=== PATIENT | female | born 1985 | race Caucasian/White ===

== ENCOUNTER 2017-05-28 17:04 | Emergency (ER) | payer OTHER ==
[2017-05-28 17:09] VITALS: BP 108/70; PULSE 87; TEMP 98.4; BMI 32.4
--- NOTE | 2017-05-28 17:10 | PDOC ---
Rapid Medical Evaluation Chief Complaint: Palpitations Time Seen by Provider: 05/28/17 17:09 Medical Evaluation: Allergies Allergy/AdvReac Type Severity Reaction Status Date / Time No Known Allergies Allergy Verified 05/28/17 17:06 05/28/17 17:09 I have performed a brief in-person evaluation of this patient. The Patient presents with a chief complaint of palpitations Patient states sent from [facility] for irregular heart beat Pertinent physical exam findings are: NAD unlabored breathing heart rate regular,S1S2 non tender chest I have ordered the following: ekg ordered The patient will proceed to the ED for further evaluation. 05/28/17 17:11 05/28/17 21:12 Discharge Disposition - Diagnosis Palpitations - Discharge Dispostion Disposition: HOME Condition at time of disposition: Stable - Referrals Referrals: Jay Caldera MD [Staff Physician] - J Luis Harris MD [Primary Care Provider] - - Patient Instructions Printed Discharge Instructions: DI for Palpitations Additional Instructions: Please follow up with a supervisor sample. You have been given a referral. Call to schedule an appointment. If you feel persistent palpitations, please return to the ER for further evaluations. - Post Discharge Activity
--- NOTE | 2017-05-28 18:51 | PDOC ---
History of Present Illness - General History Source: Patient, Family Exam Limitations: No Limitations - History of Present Illness Initial Comments: 05/28/17 18:56 The patient is a 31 year old female with no significant PMH who presents to the emergency department with palpitations beginning approximately yesterday. The patient reports going to an Urgent Care and being referred to the ED for evaluation. The patient reports that her neck sometimes throbs with the onset of the palpitations. The patient reports currently not experiencing any palpitations. The patient denies any cardiac history. The patient denies any medications. The patient denies chest pain, headache and dizziness. Denies fever, chills, nausea, vomit, diarrhea and constipation. Denies dysuria, frequency, urgency and hematuria. Allergies: NKA Past surgical history: None reported. Social history: No reported toxic habits. PCP: Dr. Harris <Damir Holliday - Last Filed: 05/28/17 18:55> - General History Source: Patient, Family Exam Limitations: No Limitations <Damir Limon - Last Filed: 05/28/17 20:33> - General Chief Complaint: Palpitations Stated Complaint: PALPITATIONS Time Seen by Provider: 05/28/17 17:09 Past History <Damir Holliday - Last Filed: 05/28/17 18:55> - Past Medical History COPD: No Psychiatric Problems: Yes (anxeity) - Reproductive History Cervical CA: No Dysfunctional Uterine Bleeding: No Ectopic : No Endometrial CA: No Polycystic Ovaries: No Therapeutic (s) & number: Yes (3) Tubal Ligation: No - Immunization History Td Vaccination: Yes Immunization Up to Date: Yes - Suicide/Smoking/Psychosocial Hx Smoking Status: No Smoking History: Never smoked Years of Tobacco Use: 0 Have you smoked in the past 12 months: No Number of Cigarettes Smoked Daily: 0 Cigars Per Day: 0 Information on smoking cessation initiated: No Hx Alcohol Use: No Drug/Substance Use Hx: No Substance Use Type: None <Damir Limon - Last Filed: 05/28/17 20:33> - Past Medical History Allergies/Adverse Reactions: Allergies Allergy/AdvReac Type Severity Reaction Status Date / Time No Known Allergies Allergy Verified 05/28/17 17:06 Home Medications: Ambulatory Orders NK [No Known Home Medication] 05/28/17 Review of Systems - Review of Systems Able to Perform ROS?: Yes Comments:: 05/28/17 18:56 GENERAL/CONSTITUTIONAL: No fever or chills. No weakness. HEAD, EYES, EARS, NOSE AND THROAT: (+) Neck throb sensation. No change in vision. No ear pain or discharge. No sore throat. CARDIOVASCULAR: (+) Palpitations. No chest pain. RESPIRATORY: No cough, wheezing, or hemoptysis. GASTROINTESTINAL: No nausea, vomiting, diarrhea or constipation. GENITOURINARY: No dysuria, frequency, or change in urination. MUSCULOSKELETAL: No joint or muscle swelling or pain. No neck or back pain. SKIN: No rash NEUROLOGIC: No headache, vertigo, loss of consciousness, or change in strength/ sensation. ENDOCRINE: No increased thirst. No abnormal weight change. HEMATOLOGIC/LYMPHATIC: No anemia, easy bleeding, or history of blood clots. ALLERGIC/IMMUNOLOGIC: No hives or skin allergy. <Damir Holliday - Last Filed: 05/28/17 18:55> *Physical Exam - Vital Signs Last Vital Signs Temp Pulse Resp BP Pulse Ox 98.4 F 87 18 108/70 100 05/28/17 17:07 05/28/17 17:07 05/28/17 17:07 05/28/17 17:07 05/28/17 17:07 - Physical Exam Comments: 05/28/17 18:56 GENERAL: Awake, alert, and fully oriented, in no acute distress HEAD: No signs of trauma EYES: PERRLA, EOMI, sclera anicteric, conjunctiva clear ENT: Auricles normal inspection, hearing grossly normal, nares patent, oropharynx clear without exudates. Moist mucosa NECK: Normal ROM, supple, no lymphadenopathy, JVD, or masses LUNGS: Breath sounds equal, clear to auscultation bilaterally. No wheezes, and no crackles HEART: Regular rate and rhythm, normal S1 and S2, no murmurs, rubs or gallops ABDOMEN: Soft, nontender, normoactive bowel sounds. No guarding, no rebound. No masses EXTREMITIES: Normal range of motion, no edema. No clubbing or cyanosis. No cords, erythema, or tenderness NEUROLOGICAL: Cranial nerves II through XII grossly intact. Normal speech, normal gait SKIN: Warm, Dry, normal turgor, no rashes or lesions noted. <Damir Holliday - Last Filed: 05/28/17 18:55> - Vital Signs Last Vital Signs Temp Pulse Resp BP Pulse Ox 98.4 F 87 18 108/70 100 05/28/17 17:07 05/28/17 17:07 05/28/17 17:07 05/28/17 17:07 05/28/17 17:07 <Damir Limon - Last Filed: 05/28/17 20:33> Heart Score/ECG Review #1 05/28/17 18:41 NSR 88, no std/monica, normal axis, normal intervals, borderline left atrial enlargement, TWI III, V3, QTC 421 msec <Damir Limon - Last Filed: 05/28/17 20:33> ED Treatment Course - LABORATORY CBC & Chemistry Diagram: 05/28/17 18:38 05/28/17 18:38 <Damir Holliday - Last Filed: 05/28/17 18:55> - LABORATORY CBC & Chemistry Diagram: 05/28/17 18:38 05/28/17 19:25 <Damir Limon - Last Filed: 05/28/17 20:33> Medical Decision Making - Medical Decision Making 05/28/17 18:42 A portion of this note was documented by scribe services under my direction. I have reviewed the details of the note, within reason, and agree with the documentation with the following case summary and management plan written by me. Patient treated in the ED. Nursing notes are reviewed and incorporated into the medical decision-making. Vital signs reviewed. Peripheral IV access obtained by the nurse, laboratory studies are drawn and sent, reviewed and interpreted by myself. Vital Signs Temp Pulse Resp BP Pulse Ox 98.4 F 87 18 108/70 100 05/28/17 17:07 05/28/17 17:07 05/28/17 17:07 05/28/17 17:07 05/28/17 17:07 31 year old female c/ no pmh p/w palpitations since yesterday. Pt reports intermittent episodes of rapid palpitations, no chest pain or SOB. No hx of cardiac disease or pulmonary embolism or thyroid disorder. Noticed intermittent episodes which the patient thought was rapid. She initially thought it was anxiety. Patient went to urgent care who directed her to the ED. Pt is asymptomatic now. ECG demonstrates no acute findings. Will need to r/o arrhythmias i.e. atrial fibrillation. Labs including TSH. If the workup is unremarkable, and patient is asymptomatic, pt will be d/c'd with cardiology follow up for holter monitor. 05/28/17 20:31 CBC, BMP 05/28/17 18:38 05/28/17 19:25 CMP Sodium 138 mmol/L (136-145) 05/28/17 19:25 Potassium 4.0 mmol/L (3.5-5.1) 05/28/17 19:25 Chloride 107 mmol/L (98-107) 05/28/17 19:25 Carbon Dioxide 24 mmol/L (21-32) 05/28/17 19:25 Anion Gap 7 (8-16) L 05/28/17 19:25 BUN 15 mg/dL (7-18) 05/28/17 19:25 Creatinine 0.6 mg/dL (0.55-1.02) 05/28/17 19:25 Creat Clearance w eGFR > 60 (>60) 05/28/17 19:25 Random Glucose 120 mg/dL (74-106) H 05/28/17 19:25 Calcium 8.6 mg/dL (8.5-10.1) 05/28/17 19:25 Total Bilirubin 0.5 mg/dL (0.2-1.0) D 05/28/17 19:25 AST 8 U/L (15-37) L 05/28/17 19:25 ALT 26 U/L (12-78) D 05/28/17 19:25 Alkaline Phosphatase 53 U/L (45-117) 05/28/17 19:25 Creatine Kinase 63 IU/L (26-192) 05/28/17 19:25 Troponin I < 0.02 ng/ml (0.00-0.05) 05/28/17 19:25 Total Protein 7.1 g/dl (6.4-8.2) 05/28/17 19:25 Albumin 4.0 g/dl (3.4-5.0) 05/28/17 19:25 TSH 1.04 uIU/ml (0.358-3.74) 05/28/17 19:25 Labs reassuring. Patient feels well. I instructed the patient that she should follow up with cardiology. Return precautions given. Will give her a referral <Damir Limon - Last Filed: 05/28/17 20:33> *DC/Admit/Observation/Transfer - Attestations Scribe Attestion: 05/28/17 18:56 Documentation prepared by Damir Holliday, acting as medical center representative for Damir Limon MD. <Damir Holliday - Last Filed: 05/28/17 18:55> - Discharge Dispostion Admit: No <Damir Limon - Last Filed: 05/28/17 20:33> Diagnosis at time of Disposition: Palpitations - Discharge Dispostion Disposition: HOME Condition at time of disposition: Stable - Referrals Referrals: J Luis Harris MD [Primary Care Provider] - Jay Caldera MD [Staff Physician] - - Patient Instructions Printed Discharge Instructions: DI for Palpitations Additional Instructions: Please follow up with a school occupational therapist. You have been given a referral. Call to schedule an appointment. If you feel persistent palpitations, please return to the ER for further evaluations. - Post Discharge Activity
[2017-05-28 18:54] LABS: BASOPHIL 0.4 % (0-2.0); EOSINOPHIL 1.6 % (0-4.5); MCH 29.6 pg (25.7-33.7); MCHC 34.1 g/dl (32.0-36.0); MEAN PLT VOLUME 8.6 fl (7.5-11.1); NEUTROPHILS 65.2 % (42.8-82.8); PLATELET COUNT 191 K/MM3 (134-434); RDW 12.8 % (11.6-15.6); WHITE BLOOD COUNT 8.8 K/mm3 (4.0-10.0)
[2017-05-28 19:09] LABS: INR 1.06 (0.82-1.09)
[2017-05-28 19:12] LABS: ACTIVATED PTT 31.7 SECONDS (26.9-34.4)
[2017-05-28 20:04] LABS: ANION GAP 7 (8-16); BILIRUBIN,TOTAL 0.5 mg/dL (0.2-1.0); CALCIUM 8.6 mg/dL (8.5-10.1); CO2 24 mmol/L (21-32); CREATININE 0.6 mg/dL (0.55-1.02); GLUCOSE,RANDOM 120 mg/dL (74-106); SGOT/AST 8 U/L (15-37); SGPT/ALT 26 U/L (12-78); TOT PROT 7.1 g/dl (6.4-8.2)
[2017-05-28 20:12] LABS: ALK PHOS 53 U/L (45-117); CPK 63 IU/L (26-192); THYROID STIMULATING HORMONE 1.04 uIU/ml (0.358-3.74); TROPONIN I < 0.02 ng/ml (0.00-0.05)
--- NOTE | 2017-05-29 13:57 | EKG ---
Test Reason : Blood Pressure : / mmHG Vent. Rate : 088 BPM Atrial Rate : 088 BPM P-R Int : 154 ms QRS Dur : 078 ms QT Int : 348 ms P-R-T Axes : 054 034 014 degrees QTc Int : 421 ms NORMAL SINUS RHYTHM POSSIBLE LEFT ATRIAL ENLARGEMENT ST AND T WAVE ABNORMALITIES NO PREVIOUS ECGS AVAILABLE REPEAT EKG IF CLINICALLY INDICATED Confirmed by DAR ZUNIGA MD ([id number]) on 05/29/2017 1:56:55 PM Referred By: Confirmed By:DAR ZUNIGA MD
== END 2017-05-28 20:41 | disposition home or self-care (01) ==
LOC: JER 17:04
DX: R00.2 Palpitations (principal)
CPT/HCPCS: 36415; 80053; 82550; 84443; 84484; 85025; 85610; 85730; 93005; 93010; 99285-25

== ENCOUNTER 2022-03-13 21:36 | Emergency (ER) | payer OTHER ==
[2022-03-13 21:44] VITALS: BP 125/87; PULSE 113; RESP 18; TEMP 98.4; BMI 34.3
[2022-03-13] MEDS ORDERED: DIPHTH,PERTUSS(ACELL),TET 0.5 ML DISP.SYRIN IM ONE ×2 (23:25→23:31)
[2022-03-13] MEDS ORDERED: ONDANSETRON *ODT* 4 MG TABLET SL ONE (23:26)
[2022-03-13] MEDS ORDERED: IBUPROFEN 600 MG TABLET (FP) PO ONE ×2 (23:26→23:31)
[2022-03-13] MEDS ORDERED: ONDANSETRON *ODT* 4 MG TABLET ONE (23:31)
== END 2022-03-14 02:02 | disposition home or self-care (01) ==
LOC: JERFT 21:36
PROC: 3E0234Z Introduction of Serum, Toxoid and Vaccine into Muscle, Percutaneous Approach (ICD-10-PCS; principal; 2022-03-13)
DX: S61.211A Laceration without foreign body of left index finger without damage to nail, initial encounter (principal); W26.0XXA Contact with knife, initial encounter
CPT/HCPCS: 73130-TC-LT-FY; 90471; 90715; 99284-25; Q0162

== ENCOUNTER 2022-05-09 17:42 | Emergency (ER) | payer BC, OTHER ==
[2022-05-09 18:06] VITALS: BP 134/83; PULSE 89; RESP 18; TEMP 98; BMI 31.7
[2022-05-09 20:10] LABS: BASO % 0.6 % (0-2.0); EOS % 1.8 % (0-4.5); HEMATOCRIT 39.8 % (32.4-45.2); HEMOGLOBIN 13.7 GM/dL (10.7-15.3); LYMPH % 27.2 % (8-40); MCH 30.7 pg (25.7-33.7); MCHC 34.5 g/dl (32.0-36.0); MEAN CELL VOLUME 88.8 fl (80-96); MEAN PLT VOLUME 7.9 fl (7.5-11.1); MONO % 4.8 % (3.8-10.2); NEUT % 65.6 % (42.8-82.8); PLATELET COUNT 240 10^3/uL (134-434); RBC 4.48 M/mm3 (3.60-5.2); RDW 12.9 % (11.6-15.6); WHITE BLOOD COUNT 8.3 K/mm3 (4.0-10.0)
[2022-05-09 20:30] LABS: CALCIUM 8.5 mg/dL (8.5-10.1)
[2022-05-09 20:31] LABS: ALBUMIN 3.9 g/dl (3.4-5.0); BLOOD UREA NITROGEN 14.7 mg/dL (7-18)
[2022-05-09 20:34] LABS: CREATININE 0.6 mg/dL (0.55-1.3)
[2022-05-09 20:35] LABS: BILIRUBIN,TOTAL 0.4 mg/dL (0.2-1)
[2022-05-09] MEDS ORDERED: KETOROLAC TROMETHAMINE 30 MG/1 ML VIAL IVPUSH ONE (21:55)
[2022-05-09] MEDS ORDERED: diazePAM 5 MG TABLET PO ONE (21:55)
[2022-05-09] MEDS ORDERED: diazePAM 5 MG TABLET ONE (22:11)
[2022-05-09] MEDS ORDERED: KETOROLAC TROMETHAMINE 30 MG/1 ML VIAL ONE (22:11)
== END 2022-05-09 22:46 | disposition home or self-care (01) ==
LOC: JER 17:42
PROC: 3E033GC Introduction of Other Therapeutic Substance into Peripheral Vein, Percutaneous Approach (ICD-10-PCS; principal; 2022-05-09)
DX: R07.9 Chest pain, unspecified (principal)
CPT/HCPCS: 36415; 71046-TC-FY; 80053; 84484; 85025; 85379; 93005; 93010; 99285-25